=== PATIENT | female | born 1950 | race Caucasian/White ===

== ENCOUNTER 2025-07-24 11:00 | Outpatient (CLI) | payer MEDICARE, SELFPAY ==
--- NOTE | ~2025-07-24 | XR_ITS ---
EXAMINATION: XR chest 2V, 07/24/2025 11:20 ELECTRIC BATH ATTENDANT HISTORY: E87.1 - Hypo-osmolality and hyponatremia HTN DENIES SYMPTOMS COMPARISON: No comparisons available. Technique: 2 views obtained. Findings: The lungs are clear, no effusion. No pneumothorax. Heart is normal size. Mediastinal and hilar contours are within normal limits. Bony thorax no acute abnormality. Impression: No acute cardiopulmonary abnormality. Reviewed, dictated and finalized at location P. TRIC BATH ATTENDANT Impression: No acute cardiopulmonary abnormality.
--- OUTSIDE RECORDS SUMMARY | 2025-07-24 12:09 | XMS_ITS | Patient Health Record ---
Author Organization [employer] Address [address] [facility] [address] [place] [phone] Care Team Providers Care Craft Recruiter Name Role Phone Carroll Whitfield MD Primary Care Provider Shamar Olivera Unavailable [phone] Allergies Allergen (clinical drug ingredient) Drug/Non Drug Allergy documented on EMR Reaction Allergy Type Onset Date Status hydrochlorothiazide Hydrochlorothiazide electrol yte imbalance Drug Allergy Active Reason For Referral No Information Medications Medication SIG (Take, Route, Frequency, Duration) Notes Start Date End Date Status Furosemide Active Senna Active Probiotic Active OTC/Vitamins Centrum Silver Multivitamin, Vitamin E Active Linzess 290 MCG 1 capsule at least 30 minutes before the first meal of the day on an empty stomach Orally Once a day; Duration: 30 days 11/26/2024 Active Meloxicam Active Levothyroxine Sodium Active Indapamide Active amLODIPine Besylate Active Immunizations Vaccine Route Administration Date Status Comme nts Pneumococcal polysaccharide PPV23 Unknown 08/25/2023 Ad ministered Social History Tobacco Use: Social History Observation Description Date Details (start date - stop date) Never Smoker NA - NA Tobacco Use/Smoking Question Answer Notes Are you a nonsmoker Section Notes: She is a retired loan secretary, , 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, , 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, , 2 children Problems Problem Type SNOMED Code ICD Code Onset Dates Problem Status W/U Status Risk Notes Problem History of polyp of colon (situation) (306385113) Personal history of colonic polyps (Z86.010) Active confirmed Problem History of polyp of colon (situation) (970878368) History of colon polyps (Z86.010) Active confirmed Problem Constipation (50000844) Constipation (K59.00) Active confirmed Problem Chronic constipation (248562472) Chronic constipation (K59.09) Active confirmed Vital Signs Height 66 in 11/19/2024 Weight 129 lbs 11/19/2024 BMI 20.82 kg/m2 11/19/2024 Encounters Encounter Location Date Provider Diagnosis [address] [place] [address] 11/19/2024 Shamar Gilmore Chronic constipation K59.09 ; History of colon polyps Z86.0100 ; Family history of colon cancer Z80.0 and Pruritus ani L29.[address] JAMIE Painter [address] 11/18/2024 Shamar Mando [address] [place] [address] 11/22/2024 [facility] [address] [place] [address] 11/26/2024 [address] [place] [address] 12/05/2024 Shamar Gilmore [address] [place] [address] 12/23/2024 Shamar Gilmore Assessments Encounter Date Diagnosis (ICD Code) Assessment Notes Treatment Notes Treatment Clinical Notes Section Notes 11/19/2024 Chronic constipation (ICD-10 - K59.09) 1. We will begin Linzess 145 mcg each morning. Use and side effect profile reviewed.2. Patient will call me to update myself regarding her symptoms after starting new medication.3. A&E ointment to perianal area. As able, avoid chronic steroid use in this region.4. Repeat colonoscopy 3 years from her prior exam that revealed multiple polyps.5. She is otherwise encouraged to return to the care of her primary doctor. Thank you as always CHRONIC CONSTIPATION-betsey russell is a very pleasant 74-year-old female with lifelong, chronic constipation. Currently using senna. Recently stopped a laxative tea because product was discontinued in the grocery store. No alarm symptoms. Differential diagnosis includes simple constipation, constipation predominant irritable bowel syndrome, colonic inertia, symptomatic adhesions or other. I will treat her with a course of Linzess. Use and side effect profile reviewed extensively. PRURITUS ANI-perianal burning and itching. I have discussed pruritus ani with her on today's date. I have asked her to avoid chronic use of steroids in this area. Rather, she will use a barrier A and D ointment. HISTORY OF COLON POLYPS, FAMILY HISTORY OF COLON CANCER-negative alarm symptoms. I reminded her of the timing of her next colonoscopy. 11/19/2024 History of colon polyps (ICD-10 - Z86.0100) CHRONIC CONSTIPATIONjeny russell is a very pleasant 74-year-old female with lifelong, chronic constipation. Currently using senna. Recently stopped a laxative tea because product was discontinued in the grocery store. No alarm symptoms. Differential diagnosis includes simple constipation, constipation predominant irritable bowel syndrome, colonic inertia, symptomatic adhesions or other. I will treat her with a course of Linzess. Use and side effect profile reviewed extensively. PRURITUS ANI-perianal burning and itching. I have discussed pruritus ani with her on today's date. I have asked her to avoid chronic use of steroids in this area. Rather, she will use a barrier A and D ointment. HISTORY OF COLON POLYPS, FAMILY HISTORY OF COLON CANCER-negative alarm symptoms. I reminded her of the timing of her next colonoscopy. 11/19/2024 Family history of colon cancer (ICD-10 - Z80.0) CHRONIC CONSTIPATION-betsey russell is a very pleasant 74-year-old female with lifelong, chronic constipation. Currently using senna. Recently stopped a laxative tea because product was discontinued in the grocery store. No alarm symptoms. Differential diagnosis includes simple constipation, constipation predominant irritable bowel syndrome, colonic inertia, symptomatic adhesions or other. I will treat her with a course of Linzess. Use and side effect profile reviewed extensively. PRURITUS ANI-perianal burning and itching. I have discussed pruritus ani with her on today's date. I have asked her to avoid chronic use of steroids in this area. Rather, she will use a barrier A and D ointment. HISTORY OF COLON POLYPS, FAMILY HISTORY OF COLON CANCER-negative alarm symptoms. I reminded her of the timing of her next colonoscopy. 11/19/2024 Pruritus ani (ICD-10 - L29.0) CHRONIC CONSTIPATION-pa drew is a very pleasant 74-year-old female with lifelong, chronic constipation. Currently using senna. Recently stopped a laxative tea because product was discontinued in the grocery store. No alarm symptoms. Differential diagnosis includes simple constipation, constipation predominant irritable bowel syndrome, colonic inertia, symptomatic adhesions or other. I will treat her with a course of Linzess. Use and side effect profile reviewed extensively. PRURITUS ANI-perianal burning and itching. I have discussed pruritus ani with her on today's date. I have asked her to avoid chronic use of steroids in this area. Rather, she will use a barrier A and D ointment. HISTORY OF COLON POLYPS, FAMILY HISTORY OF COLON CANCER-negative alarm symptoms. I reminded her of the timing of her next colonoscopy. 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 Four 5 to 8 mm polyps in the transverse colon (2) and the ascending colon (2). One diminutive polyp in the mid ascending colon. Hemorrhoids. 02/2023 Hospitalization History Reason Date(Month/Year) Hyponatremia and Hypokalemia
== END 2025-07-24 11:01 | disposition home or self-care (01) ==
PROVIDERS: PCP Internal Medicine; Visit Provider Internal Medicine Nephrology
DX: E87.1 Hypo-osmolality and hyponatremia (principal)
CPT/HCPCS: 71046

== ENCOUNTER 2025-08-20 13:35 | Outpatient (CLI) | payer MEDICARE, SELFPAY ==
--- NOTE | ~2025-08-20 | DEXA_ITS ---
Bone Density Report Name: JAYDE HOGAN Age: 75 Sex: Female Ethnicity: White Date of : 1950 Indication: postmenopausal; screening for osteoporosis; height loss; Referring Provider: MARIAH, KEAGAN Matthew Study: Bone densitometry was performed. Exam Date: August 20, 2025 Accession number: [id number] Bone Density: Region BMD T-score Z-score Classification AP Spine(L1, L2, L3) 0.888 -1.2 1.1 Osteopenia Femoral Neck (Left) 0.567 -2.5 -0.6 Osteoporosis Total Hip (Left) 0.742 -1.6 0.1 Osteopenia Femoral Neck (Right) 0.533 -2.8 -0.9 Osteoporosis Total Hip (Right) 0.670 -2.2 -0.5 Osteopenia Total Hip Mean 0.706 -1.9 -0.2 Osteopenia World Health Organization criteria for BMD impression classify patients as: Normal (T-score at or above -1.0), Osteopenia (T-score between -1.0 and -2.5), or Osteoporosis (T-score at or below -2.5). 10-year Fracture Risk: FRAX not reported because: Some T-score for Spine Total or Hip Total or Femoral Neck at or below -2.5 Clinical Information Provided by Patient: Has used the following medications: Actonel (i.e. risedronate), Vitamin D, Calcium Patient maximum height was 66 Menopause Age: 52 Drinks caffeinated beverages Onset of menses at age 16 Number of children 1 Impression: The patient has osteoporosis, based on the Right Femoral Neck T-score. Discussion: INCREASED RISK OF FRACTURE. BONE DENSITY IS UNDESIRABLY LOW AT ONE OR MORE SKELETAL SITES, CONSISTENT WITH POSTMENOPAUSAL OSTEOPOROSIS. This patient's lowest T-score meets the World Health Organization's (WHO) criteria for osteoporosis at one or more sites (T-score -2.5 or below). In untreated patients, the risk of osteoporotic fracture increases approximately two-fold for each 1.0 SD decrease in T-score. Low bone density is not the only risk factor for fracture; also consider factors such as patient's age, frailty or poor health, risk of falling, risk of injury, previous osteoporotic fracture, family history of osteoporosis, cigarette smoking, low body weight, etc. Not everyone with low bone mineral density has osteoporosis; osteomalacia and other metabolic bone disorders should also be considered. Patients who have osteoporosis should be evaluated for specific diseases and conditions (secondary causes) that may cause or contribute to bone loss. The [place] Association of Clinical Endocrinologists (AACE) and National Osteoporosis Foundation (NOF) recommend pharmacologic intervention for all postmenopausal women whose T-score is in this range. The patient should follow a healthful lifestyle (good nutrition with adequate calcium and vitamin D, and appropriate weight-bearing exercise). Follow-Up: Consider a repeat BMD and Vertebral Fracture Assessment (VFA) exam in 2 years or sooner if medically necessary, to reassess this patient's status. Reported by: DORIE on 08/25/2025 7:03:00 AM. Reviewed, dictated and finalized at location A.
--- NOTE | ~2025-08-20 | MM_ITS ---
EXAMINATION: MM screening kayce BI w nathaniel HISTORY: Screening. TECHNIQUE: Craniocaudal and mediolateral oblique 3-D tomosynthesis images were obtained and synthetic 2-D images were generated. CAD analysis was submitted and interpreted. COMPARISON: 2008 BREAST PARENCHYMAL COMPOSITION: Dense: The breasts are heterogeneously dense FINDINGS: No suspicious masses are seen. There are no suspicious calcifications. No unexplained architectural distortion is seen. There are no skin or nipple abnormalities identified. There is no adenopathy seen on the images submitted. IMPRESSION: No mammographic evidence to suggest malignancy is seen. The patient may return to screening mammography as per ACR guidelines. BI-RADS 1 - Negative. Reviewed, dictated and finalized at location C. NER CCO
== END 2025-08-20 13:36 | disposition home or self-care (01) ==
LOC: MICIMG 13:37
PROVIDERS: PCP Internal Medicine; Visit Provider Internal Medicine
DX: Z12.31 Encounter for screening mammogram for malignant neoplasm of breast (principal); M81.0 Age-related osteoporosis without current pathological fracture; M85.88 Other specified disorders of bone density and structure, other site; M85.852 Other specified disorders of bone density and structure, left thigh; M85.851 Other specified disorders of bone density and structure, right thigh
CPT/HCPCS: 77063; 77067; 77080

== ENCOUNTER 2025-08-26 14:10 | Outpatient (CLI) | payer MEDICARE, SELFPAY ==
--- OUTSIDE RECORDS SUMMARY | 2025-08-26 13:30 | XMS_ITS | Encounter Summary ---
Author Organization [facility] [employer] [facility] Address [address] [place] [address] Care Team Providers Care Building Architect Name Role Phone Carroll Whitfield MD Primary Care Provider [phone] Reason for Referral * Radiology Services (Routine) - Open Specialty Diagnoses / Procedures Referred By Contac t Referred To Contact Diagnoses Plasma cell disorder Procedures XR BONE SURVEY COMPLETE Adalid Salinas MD [address] [employer] [address] [place] [phone] Phone: tel: fax: Referral ID Status Reason Start Date Expiration Date Visits Re quested Visits Authorized [id number] Open 08/26/2025 09/26/2026 1 1 STIC WARFARE ANALYST Reason for Visit * Reason Comments Establish Care Encounter Details Date Type Department Care Team (Late st Contact Info) Description 08/26/2025 1:30 PM ACOUSTIC WARFARE ANALYST Office Visit [facility] Oncology and Hematology - [place] [address] [facility] [address] [place] [address] Adalid Salinas MD [address] [place] [phone] Plasma cell disorder (Primary Dx) Social History Tobacco Use Types Packs/Day Years Used Date Smoking Tobacco: Never Smokeless Tobacco: Never Tobacco Cessation:Counseling Given: Not Answered Alcohol Use Standard Drinks/Week Comments Never 0 (1 standard drink = 0.6 oz pur e alcohol) Comments Unknown Sex and Gender Information Value Date Recorded Sex Assigned at Not on file Legal Sex Female 1:05 PM ACOUSTIC WARFARE ANALYST Gender Identity Not on file Sexual Orientation Not on file documented as of this encounter Last Filed Vital Signs Vital Sign Reading Time Taken Comments Blood Pressure 139/67 08/26/2025 1:38 PM ACOUSTIC WARFARE ANALYST Pulse 76 08/26/2025 1:38 PM ACOUSTIC WARFARE ANALYST Temperature 36.6 C (97.8 F) 08/26/2025 1:38 PM ACOUSTIC WARFARE ANALYST Respiratory Rate 15 08/26/2025 1:38 PM ACOUSTIC WARFARE ANALYST Oxygen Saturation 95% 08/26/2025 1:38 PM ACOUSTIC WARFARE ANALYST Inhaled Oxygen Concentration - - Weight 61.3 kg (135 lb 3.2 oz) 08/26/2025 1:38 P M ACOUSTIC WARFARE ANALYST Height 162.6 cm (5' 4) 08/26/2025 1:38 PM ACOUSTIC WARFARE ANALYST Body Mass Index 23.21 08/26/2025 1:38 PM ACOUSTIC WARFARE ANALYST documented in this encounter Progress Notes * [...] dysuria; no frequency; no hesitancy; no hematuria REMEDIAL TEACHER: Musculosketetal: Patient did not mention bone pain; [...] of the total time spent counseling patient [id number]. CC:?Akbar Jacobs MD STIC WARFARE ANALYST documented in this encounter Plan of Treatment Upcoming Encounters Date Type Department Care Team (Late st Contact Info) Description 09/09/2025 4:00 PM ACOUSTIC WARFARE ANALYST Telephone Check Up [facility] Oncology and Hematology - [address] [phone] Jeny Deutsch MD [address] [place] [address] Scheduled Orders Name Type Priority Associated Diagnoses [...] cells documented in this encounter Care Teams Building Architect Relationship Specialty Start Date End Date Carroll Whitfield MD [address] [facility] [address] [place] [address] PCP - General Internal Medicine 08/26/25 documented as of this encounter
[2025-08-26 14:31] LABS: Hematocrit 37.2 % (37.0-47.0); Hemoglobin 12.5 g/dL (12.0-15.0); Immature Granulocyte Percent A 0.3 % (0-0.5); Lymphocytes Absolute Auto 1.88 K/mm3 (0.9-3.2); Mean Corpuscular HGB Conc 33.6 g/dl (32-36); Mean Corpuscular Hemoglobin 30.0 pg (26-34); Mean Corpuscular Volume 89.4 fl (80-100); Nucleated Red Blood Cells Absolute Auto 0.000 K/mm3 (0.0-0.012); Nucleated Red Blood Cells Perc 0.0 % (0.0-0.2); Platelet Count Result 277 k/mm3 (150-375); Red Blood Count 4.16 M/mm3 (4.2-5.4); White Blood Count 6.2 K/mm3 (4.5-10.0)
[2025-08-26 16:22] LABS: Alanine Aminotransferase 20 U/L (6-35); Albumin Level 4.4 g/dL (3.5-5.1); Alkaline Phosphatase 76 U/L (38-126); Anion Gap 5 mmol/L (4-12); Aspartate Amino Transferase 50 U/L (14-36); Bilirubin,Total 0.3 mg/dL (0.2-1.3); Blood Urea Nitrogen 10 mg/dL (7-17); Calcium 9.4 mg/dL (8.4-10.2); Carbon Dioxide 28 mmol/L (22-30); Chloride 99 mmol/L (98-107); Estimated Glomerular Filt Rate > 60; Glucose 82 mg/dL (65-110); Potassium 4.1 mmol/L (3.4-5.0); Sodium 132 mmol/L (137-145); Total Protein 7.0 g/dL (6.3-8.2)
[2025-08-26 16:30] LABS: Immunoglobulin A 47 mg/dL (70-400); Immunoglobulin G 561 mg/dL (700-1600); Immunoglobulin M 185 mg/dL (40-230)
--- OUTSIDE RECORDS SUMMARY | 2025-08-26 16:36 | XMS_ITS | Clinical Summary ---
Author Organization [facility]ia tejada Renae Address [address] [place] [address] Care Team Providers Care Gaming Pit Boss Name Role Phone Carroll Whitfield MD Primary Care Provider [phone] Allergies No known active allergies Medications levothyroxine 75 mcg tablet Take 75 mcg by mouth daily in the morning. Active meloxicam (MOBIC) 15 mg tablet Take 15 mg by mouth daily. Active amLODIPine (NORVASC) 10 mg tablet Take 10 mg by mouth daily. Active furosemide (LASIX) 20 mg tablet Take 20 mg by mouth daily. Active losartan (COZAAR) 100 mg tablet Take 100 mg by mouth daily. Active Active Problems No known active problems Encounters Date Type Department Care Team Description 08/26/2025 1:30 PM CAMERA PERSON Office Visit [facility] Oncology and Hematology - [place] [address] [address] Adalid Salinas MD Plasma cell disorder (Primary Dx) from Last 3 Months Family History Medical History Relation Name Comments No Known Problems Brother 1 Diabetes Brother 2 Lung Cancer Brother 2 Diabetes Child 1 Breast Cancer Child 2 Colon Cancer Father mets to liver Diabetes Father No Known Problems Mother No Known Problems Sister 1 No Known Problems Sister 2 Relation Name Status Comments Brother 1 Alive Brother 2 Child 1 Alive Child 2 Alive Father Mother Sister 1 Alive Sister 2 Alive Social History Tobacco Use Types Packs/Day Years Used Date Smoking Tobacco: Never Smokeless Tobacco: Never Tobacco Cessation:Counseling Given: Not Answered Alcohol Use Standard Drinks/Week Comments Never 0 (1 standard drink = 0.6 oz pur e alcohol) Comments Unknown Sex and Gender Information Value Date Recorded Sex Assigned at Not on file Legal Sex Female 1:05 PM CAMERA PERSON Gender Identity Not on file Sexual Orientation Not on file Last Filed Vital Signs Vital Sign Reading Time Taken Comments Blood Pressure 139/67 08/26/2025 1:38 PM CAMERA PERSON Pulse 76 08/26/2025 1:38 PM CAMERA PERSON Temperature 36.6 C (97.8 F) 08/26/2025 1:38 PM CAMERA PERSON Respiratory Rate 15 08/26/2025 1:38 PM CAMERA PERSON Oxygen Saturation 95% 08/26/2025 1:38 PM CAMERA PERSON Inhaled Oxygen Concentration - - Weight 61.3 kg (135 lb 3.2 oz) 08/26/2025 1:38 P M CAMERA PERSON Height 162.6 cm (5' 4) 08/26/2025 1:38 PM CAMERA PERSON Body Mass Index 23.21 08/26/2025 1:38 PM CAMERA PERSON Plan of Treatment Upcoming Encounters Date Type Department Care Team (Late st Contact Info) Description 09/09/2025 4:00 PM CAMERA PERSON Telephone Check Up [facility] Oncology and Hematology - [place] [address] [facility] [address] [address] Jeny Deutsch MD [address] [place] [phone] Health Maintenance Due Date Last Done Comments DTAP/TDAP/TD VACCINES (1 - Tdap) 1971 BREAST CANCER SCREENING 1992 COLORECTAL SCREENING 1997 Colorectal Cancer Screening 1997 FIT-DNA Q 3 years 1997 FIT/FOBT Q 1 year 1997 Flex Sig/CT Colonography Q 5 years 1997 PNEUMOCOCCAL VACCINE 50+ YEARS (1 of 1 - PCV) 04/04/20 02 ZOSTER VACCINE (1 of 2) 2002 OSTEOPOROSIS SCREENING 2017 INFLUENZA VACCINE (#1) 2025 RSV VACCINE (60+ or ) (1 - 1-dose 75+ series) 2027 Care Teams Gaming Pit Boss Relationship Specialty Start Date End Date Carroll Whitfield MD [address] [facility] [address] [place] [phone] PCP - General Internal Medicine 08/26/25
--- OUTSIDE RECORDS SUMMARY | 2025-08-26 16:36 | XMS_ITS | Patient Health Record ---
Author Organization [employer] Address [address] [facility] 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, , 2 children Problems Problem Type SNOMED Code ICD Code Onset Dates Problem Status W/U Status Risk Notes Problem History of polyp of colon (situation) (109423324) Personal history of colonic polyps (Z86.010) Active confirmed Problem History of polyp of colon (situation) (929255405) History of colon polyps (Z86.010) Active confirmed Problem Constipation (04839098) Constipation (K59.00) Active confirmed Problem Chronic constipation (380223274) Chronic constipation (K59.09) Active confirmed Vital Signs Height 66 in 11/19/2024 Weight 129 lbs 11/19/2024 BMI 20.82 kg/m2 11/19/2024 Encounters Encounter Location Date Provider Diagnosis [address] [place] [address] 11/19/2024 Shamar Gilmroe Chronic constipation K59.09 ; History of colon polyps Z86.0100 ; Family history of colon cancer Z80.0 and Pruritus ani L29.[address] JAMIE Painter [address] 11/18/2024 Shamar Mando [address] [place] [address] 11/22/2024 [facility] [address] [place] [address] 11/26/2024 [address] [place] [address] 12/05/2024 Shamar Gilmore [address] [place] [address] 12/23/2024 Shamar Gilmore Assessments Encounter Date Diagnosis [...] Insured Coverage Start Date Coverage End Date [facility] Medicare Advantage HMO-POS [address] [address] [place] [id number] Gaby Cat Self - patient is the [...]
[2025-08-27 14:09] LABS: Albumin 4.0 g/dL (2.9-4.4); Alpha-1-Globulin 0.3 g/dL (0.0-0.4); Alpha-2-Globulin 0.6 g/dL (0.4-1.0); Free Lambda Lt Chains, Serum 12.1 mg/L (5.7-26.3); Gamma Globulin 0.7 g/dL (0.4-1.8); Kappa/Lambda Ratio, Serum 0.93 (0.26-1.65)
== END 2025-08-26 14:11 | disposition home or self-care (01) ==
LOC: ANHLAB 14:11
PROVIDERS: PCP Internal Medicine; Visit Provider Internal Medicine Hematology & Oncology
DX: D72.9 Disorder of white blood cells, unspecified (principal)
CPT/HCPCS: 36415; 80053; 82784; 83521; 84155; 84165; 85025

== ENCOUNTER 2025-08-26 14:46 | Outpatient (CLI) | payer MEDICARE, SELFPAY ==
--- NOTE | ~2025-08-26 | XR_ITS ---
EXAMINATION: XR bone survey comp/metastic, 08/26/2025 15:00 MANDATE RETAIL SERVICE MERCHANDISER HISTORY: plasma cell disorder COMPARISON: No comparisons available. TECHNIQUE: Multiple images of the bones The lungs are clear. Cardiac silhouette and osseous structures are unremarkable. Severe loss of disc height at C5-6 and C6-7. No fracture or subluxation. No sclerotic or lytic lesions in the cervical spine No sclerotic or lytic lesions in the skull No sclerotic or lytic lesions within the uterine bilaterally. No sclerotic or lytic lesions within the forearms bilaterally No sclerotic or lytic lesions in the lower legs bilaterally. Mild loss of vertebral height throughout with mild dextroconvex scoliosis of the thoracic spine. No sclerotic or lytic lesions. There is a levoconvex scoliosis of the lumbar spine moderate loss of vertebral heights and disc heights. No sclerotic or lytic lesions Pelvis and proximal femurs are unremarkable The kidneys bilaterally demonstrate no sclerotic or lytic lesions IMPRESSION: No sclerotic or lytic lesions identified. Reviewed, dictated and finalized at location P. [employer] [employer]CH[employer]
--- OUTSIDE RECORDS SUMMARY | 2025-08-26 13:30 | XMS_ITS | Encounter Summary ---
Author Organization [facility] [employer] [facility] Address [address] [place] [address] Care Team Providers Care Parking Enforcement Manager Name Role Phone Carroll Whitfield MD Primary Care Provider [phone] Reason for Referral * Radiology Services (Routine) - Open Specialty Diagnoses / Procedures Referred By Contac t Referred To Contact Diagnoses Plasma cell disorder Procedures XR BONE SURVEY COMPLETE Adalid Salinas MD [address] [employer] [address] [place] [phone] Phone: tel: fax: Referral ID Status Reason Start Date Expiration Date Visits Re quested Visits Authorized [id number] Open 08/26/2025 09/26/2026 1 1 ION WORKER Reason for Visit * Reason Comments Establish Care Encounter Details Date Type Department Care Team (Late st Contact Info) Description 08/26/2025 1:30 PM TENSION WORKER Office Visit [facility] [place] [facility] - [place] [address] [facility] [address] [place] [address] Adalid Salinas MD [address] [address] [place] [phone] Plasma cell disorder (Primary Dx) Social History Tobacco Use Types Packs/Day Years Used Date Smoking Tobacco: Never Smokeless Tobacco: Never Tobacco Cessation:Counseling Given: Not Answered Alcohol Use Standard Drinks/Week Comments Never 0 (1 standard drink = 0.6 oz pur e alcohol) Comments Unknown Sex and Gender Information Value Date Recorded Sex Assigned at Not on file Legal Sex Female 1:05 PM TENSION WORKER Gender Identity Not on file Sexual Orientation Not on file documented as of this encounter Last Filed Vital Signs Vital Sign Reading Time Taken Comments Blood Pressure 139/67 08/26/2025 1:38 PM TENSION WORKER Pulse 76 08/26/2025 1:38 PM TENSION WORKER Temperature 36.6 C (97.8 F) 08/26/2025 1:38 PM TENSION WORKER Respiratory Rate 15 08/26/2025 1:38 PM TENSION WORKER Oxygen Saturation 95% 08/26/2025 1:38 PM TENSION WORKER Inhaled Oxygen Concentration - - Weight 61.3 kg (135 lb 3.2 oz) 08/26/2025 1:38 P M TENSION WORKER Height 162.6 cm (5' 4) 08/26/2025 1:38 PM TENSION WORKER Body Mass Index 23.21 08/26/2025 1:38 PM TENSION WORKER documented in this encounter Progress Notes * Adalid Salinas MD - 08/26/2025 1:51 PM CST Hematology-oncology consult Note Requesting Physician Akbar Jacobs MD Primary Care Physician Carroll Whitfield MD Problem list There is no problem list on file for this patient. Previous TREATMENT ? Measurable Disease ? Reason for Visit Gaby Cat is a 75 y.o. female who was referred for consultation for monoclonal gammopathy of unknown significance. History of present illness This is a pleasant 75-year-old female with history of hypertension and hypothyroidism wasseen by nephrology due to hyponatremia and workup was performed that included serum protein electrophoresis with immunofixation. Labs done on July 24, 2025 showed IgM monoclonal protein with lambda light chain specificity present on the serum immunofixation. Clinically she denies any bone pain and neuropathy. Weight and appetite stable. She has no previous history of malignancy. She has been dealing with intermittent constipation. Her last colonoscopy was in June 2023 that showed polyps.Denies any other new complaints. Past Medical History Past Medical History: Diagnosis Date Hyperlipidemia Hypertension Surgical History No past surgical history on file. Medications Current Outpatient Medications Medication Sig Dispense Refill levothyroxine 75 mcg tablet Take 75 mcg by mouth daily in the morning. meloxicam (MOBIC) 15 mg tablet Take 15 mg by mouth daily. amLODIPine (NORVASC) 10 mg tablet Take 10 mg by mouth daily. furosemide (LASIX) 20 mg tablet Take 20 mg by mouth daily. losartan (COZAAR) 100 mg tablet Take 100 mg by mouth daily. No current facility-administered medications for this visit. Allergies No Known Allergies Immunizations: There is no immunization history on file for this patient. Family History Family History Problem Relation Name Age of Onset Colon Cancer Father mets to liver Diabetes Father No Known Problems Mother No Known Problems Brother Diabetes Brother Lung Cancer Brother No Known Problems Sister No Known Problems Sister Diabetes Child Breast Cancer Child Social History Social History Tobacco Use Smoking status: Never Smokeless tobacco: Never Substance Use Topics Alcohol use: Never Review of Systems Constitutional: Patient did not mention fever; no night sweats; no anorexia; no weight loss; no fatique NEENT: Patient did not mention headache; no change in vision; no change in hearing; no sore throat;no dysphagia Respiratory: Patient did not mention shortness of breath; no pleuritic chest pain; no cough; no hemoptysis Cardiac: Patient did not mention cardiac-like chest pain; no palpitations; no orthopnea; no PND; noDOE Breasts: Patient did not mention tenderness; no masses GI: Patient did not mention abdominal pain; no nausea; no vomiting; no diarrhea; no hematochezia; no melena : Patient did not mention dysuria; no frequency; no hesitancy; no hematuria SODIUM METHYLATE OPERATOR: Musculosketetal: Patient did not mention bone pain; no arthralgia; no joint swelling; no myalgia; Skin: Patient did not mention pruritis; no rash; no petechiae; no ecchymoses Endocrine: Patient did not mention polydipsia; no polyuria; no unusual weight gain Neuro: Patient did not mention headache; no change in vision; no sensory changes; no muscle weakness; no confusion; no seizures Psych: Patient did not mention anxiety; no depression; Physical Exam Vitals: As per nursing note Constitutional: Well developed, well nourished, no acute distress, non-toxic appearance Teeth and gum. No signs of infection or swelling. Eyes: PERRL, conjunctiva normal HEENT: Atraumatic, external ears normal, nose normal, oropharynx moist, no pharyngeal exudates. no sinus tenderness Neck- normal range of motion, no tenderness, supple Respiratory: No respiratory distress, normal breath sounds, no rales, no wheezing Cardiovascular: Normal rate, normal rhythm, no murmurs, no gallops, no rubs GI: Soft, nondistended, normal bowel sounds, nontender, no splenomegaly, no hepatomegaly, no mass, no rebound, no guarding : No costovertebral angle tenderness Musculoskeletal: No edema, no tenderness, no deformities. Back- no tenderness Integument: Well hydrated, no rash, Digits and nails inspection normal Lymphatic: No lymphadenopathy noted Neurologic: Alert & oriented x 3, CN 2-12 normal, normal motor function, normal sensory function, no focal deficits noted Psychiatric: Speech and behavior appropriate ? labs No results found for this or any previous visit (from the past 24 hours). Serum protein electrophoresis and immunofixation done on July 24, 2025 showed IgM monoclonal protein with lambda light chain specificity. Pathology ? Imaging & Other Studies Performance Status? Assessment / Plan: ? Monoclonal gammopathy of unknown significance. Patient is a 75-year-old pleasant female with history of hypertension and hypothyroidism was evaluated by nephrology due to hyponatremia. Workup done on July 24 including immunofixation studies on the serum showed IgM monoclonal protein with lambda light chain specificity. Clinically she denies any bone pain and neuropathy. Weight and appetite stable. She has no previous history of malignancy. I have discussed the differential diagnosis of MGUS and multiple myeloma. I will order complete workup that will include CBC with differential, CMP, serum protein electrophoresis with immunofixation, quantitative immunoglobulin and serum free light chain studies along with a skeletal survey. We discussed performing the bone marrow biopsy based on the initial testing and bone survey results. I have answered all the questions to patient's satisfaction. Follow-up with me in 2 weeks. Hypothyroidism. Patient is on levothyroxine. Hyponatremia. She will follow-up with her nephrology. Hypertension. Patient is on amlodipine and losartan. Thank you very much for allowing me to participate in Gaby Cat's evaluation and management. Please feel free to contact if I can be of any further assistance in your patient???s care requiring hematology or oncology evaluation. Sincerely, ? ? Adalid Salinas M.D. cell TOBACCO COUNSELING She is not a tobacco/nicotine user. Adalid Salinas MD ,08/26/2025 2:19 PM ? Total time spent 60 minutes, two third of the total time spent counseling patient [id number]. CC:?Akbar Jacobs MD ION WORKER documented in this encounter Plan of Treatment Upcoming Encounters Date Type Department Care Team (Late st Contact Info) Description 09/09/2025 4:00 PM TENSION WORKER Telephone Check Up [facility] [place] [facility] - [address] [id number] Jeny Deutsch MD [address] [place] [address] Scheduled Orders Name Type Priority Associated Diagnoses Orde r Schedule CBC WITH DIFFERENTIAL Lab Stat Plasma cell disorder Expected: 08/26/2025, Expires: 08/26/2026 COMPREHENSIVE METABOLIC PANEL Lab Stat Plasma cell disorder Expected: 08/26/2025, Expires: 08/26/2026 KAPPA/LAMBDA, FREE LIGHT CHAINS Lab Routine Plasma cell disorder Expected: 08/26/2025, Expires: 08/26/2026 IMMUNOGLOBULINS IGG IGA IGM Lab Routine Plasma cell disorder Expected: 08/26/2025, Expires: 08/26/2026 PROTEIN ELECTROPHORESIS W/REFLEX,SERUM Lab Routine Plasma cell disorder Expected: 08/26/2025, Expires: 08/26/2026 XR BONE SURVEY COMPLETE Imaging Routine Plasma cell disorder 1 Occurrences starting 08/26/2025 until 08/26/2026 documented as of this encounter Visit Diagnoses Diagnosis Plasma cell disorder- Primary Other specified disease of white blood cells documented in this encounter Care Teams Parking Enforcement Manager Relationship Specialty Start Date End Date Carroll Whitfield MD [address] [facility] [address] [place] [phone] PCP - General Internal Medicine 08/26/25 documented as of this encounter
--- OUTSIDE RECORDS SUMMARY | 2025-08-26 17:13 | XMS_ITS | Clinical Summary ---
Author Organization [facility] Portia te[facility]ada Renae Address [address] [place] [address] Care Team Providers Care Community Affairs Manager Name Role Phone Carroll Whitfield MD Primary Care Provider [phone] Allergies No known active allergies Medications levothyroxine [...] Department Care Team Description 08/26/2025 1:30 PM OVERWEAVER Office Visit [facility] Oncology and Hematology - [place] [address] [address] Adalid Salinas MD Plasma cell [...] on file Legal Sex Female 1:05 PM OVERWEAVER Gender Identity Not on file Sexual Orientation Not on file Last Filed Vital Signs Vital Sign Reading Time Taken Comments Blood Pressure 139/67 08/26/2025 1:38 PM OVERWEAVER Pulse 76 08/26/2025 1:38 PM OVERWEAVER Temperature 36.6 C (97.8 F) 08/26/2025 1:38 PM OVERWEAVER Respiratory Rate 15 08/26/2025 1:38 PM OVERWEAVER Oxygen Saturation 95% 08/26/2025 1:38 PM OVERWEAVER Inhaled Oxygen Concentration - - Weight 61.3 kg (135 lb 3.2 oz) 08/26/2025 1:38 P M OVERWEAVER Height 162.6 cm (5' 4) 08/26/2025 1:38 PM OVERWEAVER Body Mass Index 23.21 08/26/2025 1:38 PM OVERWEAVER Plan of Treatment Upcoming Encounters Date Type Department Care Team (Late st Contact Info) Description 09/09/2025 4:00 PM OVERWEAVER Telephone Check Up [facility] Oncology and Hematology - [place] [address] [facility] [address] [address] Jeny Deutsch MD [address] [place] [phone] Health Maintenance Due Date Last Done Comments [...] - 1-dose 75+ series) 2027 Care Teams Community Affairs Manager Relationship Specialty Start Date End Date Carroll Whitfield MD [address] [facility] [address] [place] [phone] PCP - General Internal Medicine 08/26/25
== END 2025-08-26 14:47 | disposition home or self-care (01) ==
PROVIDERS: PCP Internal Medicine; Visit Provider Internal Medicine Hematology & Oncology
DX: D72.9 Disorder of white blood cells, unspecified (principal)
CPT/HCPCS: 77075